=== PATIENT | female | born 1960 | race Caucasian/White ===

== ENCOUNTER 2018-09-07 17:42 | Emergency (ER) | payer MEDICARE, OTHER | END 2018-09-07 19:20 | disposition home or self-care (01) | LOC: FTE 17:42 | DX: S09.90XA Unspecified injury of head, initial encounter (principal); E11.9 Type 2 diabetes mellitus without complications; W22.8XXA Striking against or struck by other objects, initial encounter; Y92.9 Unspecified place or not applicable | CPT/HCPCS: 99283 ==